=== PATIENT | male | born 1985 | race Caucasian/White ===

== ENCOUNTER 2024-05-26 18:09 | Inpatient (IN) | payer OTHER ==
[2024-05-26 19:39] VITALS: BMI 31.8
[2024-05-26] MEDS ORDERED: IBUPROFEN 600 MG TABLET (FP) PO PRN (20:39)
[2024-05-26] MEDS ORDERED: ONDANSETRON *ODT* 4 MG TABLET SL PRN (20:39)
[2024-05-26] MEDS ORDERED: NICOTINE POLACRILEX 2 MG LOZENGE BC PRN (20:39)
[2024-05-26] MEDS ORDERED: BENZONATATE 200 MG CAPSULE PO PRN (20:39)
[2024-05-26] MEDS ORDERED: IBUPROFEN 400 MG TABLET (FP) PO PRN (20:39)
[2024-05-26] MEDS ORDERED: LOPERAMIDE HCL 2 MG CAPSULE PO PRN (20:39)
[2024-05-26] MEDS ORDERED: MAG HYDROX/AL HYDROX/SIMETH 30 ML UNIT-DOSE CUP PO PRN (20:39)
[2024-05-26] MEDS ORDERED: DICYCLOMINE HCL 10 MG CAPSULE PO PRN (20:39)
[2024-05-26] MEDS ORDERED: MAGNESIUM HYDROX 2400MG/30ML ORAL SUSPENSION 30 ML CUP PO PRN (20:39)
[2024-05-26] MEDS ORDERED: NICOTINE POLACRILEX 2 MG GUM BUC PRN (20:39)
[2024-05-26] MEDS ORDERED: guaiFENesin 600 MG TABLET.ER (FP) PO PRN (20:39)
[2024-05-26] MEDS ORDERED: ACETAMINOPHEN 325 MG TABLET (FP) PO PRN (20:39)
[2024-05-26] MEDS ORDERED: POLYETHYLENE GLYCOL (HEALTHYLAX) 3350 17 GM PACKET PO PRN (20:39)
[2024-05-26] MEDS ORDERED: BISMUTH SUBSALICYLATE 524 MG/30 ML PO PRN (20:39)
[2024-05-26] MEDS ORDERED: BENZOCAINE/MENTHOL (CHLORASEPTIC ) LOZENGE MM PRN (20:39)
[2024-05-26] MEDS ORDERED: chlordiazePOXIDE HCL 25 MG CAPSULE PO PRN (20:43)
[2024-05-26] MEDS: METHOCARBAMOL 500 MG TABLET PO PRN (22:05)
[2024-05-26] MEDS: MELATONIN 5 MG TABLETS PO SCH (22:05)
[2024-05-26] MEDS: THIAMINE 100 MG TABLET PO SCH (22:05)
[2024-05-26] MEDS: chlordiazePOXIDE HCL 25 MG CAPSULE PO SCH (22:06)
[2024-05-27] MEDS: PRENATAL VITAMINS W/ FOLIC ACID TABLET (FP) PO SCH (10:25)
[2024-05-27 14:23] LABS: HEMOGLOBIN 15.4 GM/dL (11.7-16.9); MCH 29.8 pg (25.7-33.7); MCHC 32.8 g/dl (32.0-35.9); MEAN CELL VOLUME 90.8 fl (80-96); MEAN PLT VOLUME 8.9 fl (7.5-11.1); PLATELET COUNT 239 10^3/uL (134-434); RBC 5.17 M/mm3 (4.00-5.60); RDW 14.7 % (11.9-15.9); WHITE BLOOD COUNT 5.3 K/mm3 (4.0-10.0)
[2024-05-27 14:42] LABS: POTASSIUM 4.6 mmol/L (3.5-5.1)
[2024-05-27 15:00] LABS: CALCIUM 10.6 mg/dL (8.5-10.1)
[2024-05-27 15:01] LABS: ALBUMIN 3.8 g/dl (3.4-5.0); BLOOD UREA NITROGEN 11.1 mg/dL (7-18)
[2024-05-27 15:02] LABS: TOT PROT 7.4 g/dl (6.4-8.2)
[2024-05-27 15:04] LABS: CREATININE 0.9 mg/dL (0.55-1.3)
[2024-05-27 15:15] LABS: BILIRUBIN,TOTAL 0.8 mg/dL (0.2-1)
[2024-05-28] MEDS: chlordiazePOXIDE HCL 25 MG CAPSULE PO SCH (05:50)
[2024-05-29] MEDS ORDERED: chlordiazePOXIDE HCL 10 MG CAPSULE PO PRN
[2024-05-29] MEDS: chlordiazePOXIDE HCL 10 MG CAPSULE PO SCH (05:16)
[2024-05-29 09:08] VITALS: BP 123/74; PULSE 73; RESP 17; TEMP 97.6
[2024-05-30] MEDS ORDERED: chlordiazePOXIDE HCL 10 MG CAPSULE PO SCH (05:00)
[2024-05-31] MEDS ORDERED: chlordiazePOXIDE HCL 10 MG CAPSULE PO ONE (05:00)
== END 2024-05-29 12:53 | disposition home or self-care (01) | DRG 897 ==
LOC: YASAS 18:09 → Y3N 20:54
PROVIDERS: ADMIT Allergy & Immunology; ATTEND Surgery
PROC: HZ2ZZZZ Detoxification Services for Substance Abuse Treatment (ICD-10-PCS; principal; 2024-05-26)
DX: F10.230 Alcohol dependence with withdrawal, uncomplicated (principal); F12.20 Cannabis dependence, uncomplicated; F17.210 Nicotine dependence, cigarettes, uncomplicated; F31.9 Bipolar disorder, unspecified; Z56.0 Unemployment, unspecified
CPT/HCPCS: 36415; 80053; 80305; 80307; 85027; 86780; 93005; 93010

== ENCOUNTER 2025-01-15 18:52 | Inpatient (IN) | payer OTHER ==
[2025-01-15 19:37] VITALS: BMI 37.5
[2025-01-15] MEDS ORDERED: diazePAM 5 MG TABLET PO PRN (21:20)
[2025-01-15] MEDS ORDERED: NICOTINE POLACRILEX 2 MG GUM BUC PRN (21:21)
[2025-01-15] MEDS ORDERED: BENZONATATE 200 MG CAPSULE PO PRN (21:21)
[2025-01-15] MEDS ORDERED: hydrOXYzine PAMOATE 25 MG CAPSULE (FP) PO PRN (21:21)
[2025-01-15] MEDS ORDERED: guaiFENesin 600 MG TABLET.ER (FP) PO PRN (21:21)
[2025-01-15] MEDS ORDERED: NICOTINE POLACRILEX 2 MG LOZENGE BC PRN (21:21)
[2025-01-15] MEDS ORDERED: POLYETHYLENE GLYCOL (HEALTHYLAX) 3350 17 GM PACKET PO PRN (21:21)
[2025-01-15] MEDS ORDERED: NALOXONE (NARCAN) HCL 4 MG/0.1 ML SPRAY NS PRN (21:21)
[2025-01-15] MEDS ORDERED: ACETAMINOPHEN 325 MG TABLET (FP) PO PRN (21:21)
[2025-01-15] MEDS ORDERED: MAG HYDROX/AL HYDROX/SIMETH 30 ML UNIT-DOSE CUP PO PRN (21:21)
[2025-01-15] MEDS ORDERED: BENZOCAINE/MENTHOL (CHLORASEPTIC ) LOZENGE MM PRN (21:21)
[2025-01-15] MEDS ORDERED: ONDANSETRON *ODT* 4 MG TABLET SL PRN (21:21)
[2025-01-15] MEDS ORDERED: MAGNESIUM HYDROX 2400MG/30ML ORAL SUSPENSION 30 ML CUP PO PRN (21:21)
[2025-01-15] MEDS ORDERED: LOPERAMIDE HCL 2 MG CAPSULE PO PRN (21:21)
[2025-01-15] MEDS ORDERED: BISMUTH SUBSALICYLATE 524 MG/30 ML PO PRN (21:21)
[2025-01-15] MEDS ORDERED: IBUPROFEN 600 MG TABLET (FP) PO PRN (21:21)
[2025-01-15] MEDS ORDERED: DICYCLOMINE HCL 10 MG CAPSULE PO PRN (21:21)
[2025-01-15] MEDS: diazePAM 5 MG TABLET PO SCH (23:10)
[2025-01-15] MEDS: THIAMINE 100 MG TABLET PO SCH (23:10)
[2025-01-15] MEDS: MELATONIN 5 MG TABLETS PO SCH (23:10)
[2025-01-15] MEDS ORDERED: diazePAM 5 MG TABLET ONE (23:14)
[2025-01-15] MEDS ORDERED: MELATONIN 5 MG TABLETS ONE (23:14)
[2025-01-16] MEDS: PRENATAL VITAMINS W/ FOLIC ACID TABLET (FP) PO SCH (10:07)
[2025-01-16 10:59] LABS: HEMATOCRIT 48.1 % (40.1-51.0); HEMOGLOBIN 15.5 g/dL (13.7-17.5); MCHC 32.2 g/dl (32.3-36.5); MEAN CELL VOLUME 89.4 fl (79.0-92.2); MEAN PLT VOLUME 10.9 fl (9.4-12.4); PLATELET COUNT 290 x10^3/uL (163-337); RDW 13.4 % (12.1-15.9)
[2025-01-16 11:19] LABS: POTASSIUM 4.7 mmol/L (3.5-5.1)
[2025-01-16 12:08] LABS: BLOOD UREA NITROGEN 17.6 mg/dL (7-18)
[2025-01-16 12:09] LABS: CALCIUM 9.7 mg/dL (8.5-10.1)
[2025-01-16 12:11] LABS: CREATININE 1.1 mg/dL (0.55-1.3)
[2025-01-16 12:17] LABS: BILIRUBIN,TOTAL 0.2 mg/dL (0.2-1)
[2025-01-17] MEDS: diazePAM 5 MG TABLET PO SCH (06:05)
[2025-01-17] MEDS: METHOCARBAMOL 500 MG TABLET PO PRN (09:48)
[2025-01-17 10:04] LABS: POTASSIUM 4.6 mmol/L (3.5-5.1)
[2025-01-17 10:06] LABS: BLOOD UREA NITROGEN 12.3 mg/dL (7-18); CALCIUM 9.3 mg/dL (8.5-10.1)
[2025-01-17 10:09] LABS: CREATININE 0.8 mg/dL (0.55-1.3)
[2025-01-17] MEDS: IBUPROFEN 400 MG TABLET (FP) PO PRN (18:49)
[2025-01-18] MEDS: diazePAM 5 MG TABLET PO SCH (05:56)
[2025-01-18 09:19] VITALS: BP 118/73; PULSE 87; RESP 18; TEMP 98
[2025-01-19] MEDS ORDERED: diazePAM 5 MG TABLET PO ONE (06:00)
== END 2025-01-18 12:25 | disposition home or self-care (01) | DRG 897 ==
LOC: YASAS 18:52 → Y6N 22:51
PROVIDERS: ADMIT Allergy & Immunology; ATTEND Family Medicine Addiction Medicine
PROC: HZ2ZZZZ Detoxification Services for Substance Abuse Treatment (ICD-10-PCS; principal; 2025-01-15)
DX: F10.230 Alcohol dependence with withdrawal, uncomplicated (principal); F10.220 Alcohol dependence with intoxication, uncomplicated; F17.210 Nicotine dependence, cigarettes, uncomplicated; F25.9 Schizoaffective disorder, unspecified; F10.282 Alcohol dependence with alcohol-induced sleep disorder; F31.9 Bipolar disorder, unspecified
CPT/HCPCS: 36415; 80048; 80053; 85027; 86780